=== PATIENT | female | born 1995 | race Caucasian/White ===

== ENCOUNTER 2021-03-07 03:46 | Inpatient (IN) | payer OTHER ==
[~2021-03-07] VITALS: Ht 172.7 cm; Wt 112.4 kg
[2021-03-07] VITALS (9 sets, daily range): BP systolic 114–133; BP diastolic 57–72
[2021-03-07] MEDS ORDERED: OXYTOCIN DRIP 30 UNITS in IV 1 EA IV PRN (05:05)
[2021-03-07] MEDS ORDERED: AZITHROMYCIN IV ONE (06:00)
[2021-03-07] MEDS ORDERED: NS IV ONE (06:00)
[2021-03-07] MEDS ORDERED: MATE ADAPTER IV ONE (06:00)
[2021-03-07] MEDS: BETAMETHASONE SOLUSPAN 6MG/ML 5ML VIAL (J0702 PER 3MG) IM SCH (06:07)
[2021-03-07 06:09] LABS: HEMATOCRIT 34.6 % (36.0-47.0); HEMOGLOBIN 10.7 g/dl (12.0-15.5); MEAN CORPUSCULAR HGB CONC 30.9 g/dl (32.0-36.5); MEAN CORPUSCULAR VOLUME 80.8 fl (80.0-96.0); PLATELET COUNT, AUTOMATED 222 10^3/uL (150-450); RED BLOOD COUNT 4.28 10^6/uL (4.00-5.40); WHITE BLOOD COUNT 10.3 10^3/uL (4.0-10.0)
[2021-03-07] MEDS ORDERED: PEPC1TAB5 PO (06:47)
[2021-03-07] MEDS ORDERED: PRENTAB9 PO (06:47)
--- NOTE | 2021-03-07 07:04 | HPEPDOC ---
Obstetrical History & Physical General Date of Admission Mar 07, 2021 at 06:09 History of Present Illness Ms. Steven is a 25yo at 33+1 presenting for ROM that occurred yesterday around 1500 and has been leaking persistently since then clear fluid without odors. She denied VB, decreased FM, or regular painful contractions. She denied n/v/d, cp, sob, araujo, visual changes, f/c, urinary sx, vaginal discharge. 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 Past Medical History Medical History anxiety, depression, abnormal pap smear Surgical History: Denies/None Family History Significant Family History: No pertinent family hx Social History Marital Status: Family situation: Spouse/partner home Psychosocial History: Anxiety, Depression * Smoker: non-smoker Alcohol: Denies Drugs: denies Imunizations Tdap status: current Influenza Status: needs Allergies Coded Allergies: No Known Allergies (Unverified , 03/07/21) Medications Scheduled Famotidine (Pepcid) 20 Mg Tablet, 1 TAB PO BID No.137/Iron/Folic Acd ( Vitamin Tablet) 1 Each Tablet, 1 TAB PO DAILY Physical Examination Physical Examination GENERAL: Alert and oriented times three. BREAST: . ABDOMEN: Gravid and non-tender to touch. FETUS: Is vertex (VTX) by sterile vaginal examination (SVE) and US HEART RATE: Regular rate and rhythm. LUNGS: Clear to auscultation (CTA). EXTREMITIES: No edema. No clonus. Laboratory Data 24H LABS Laboratory Tests 2 03/07/21 05:09: Coronavirus (COVID-19)(PCR) NEGATIVE 03/07/21 05:34: Nucleated Red Blood Cells % (auto) 0.0 CBC/BMP Laboratory Tests 03/07/21 05:34 Microbiology Microbiology 03/07/21 Group B Streptococcus Screen (JABIER), Received Pending Urine Culture: No Growth Pertinent Laboratoy Data Blood Type: O+ RBC Antibody Screen: Negative HIV: Negative Hepatitis B: Negative Rapid Plasma Reagin: Nonreactive Rubella: Immune Varicella: Immune Chlamydia/Gonorrhea: Negative Group B Streptococcus: Unknown Quad Screen Test: Declined Glucose Tolerance Test: 142 Anatomy Ultrasound Placenta Location: Posterior Normal Anatomy: Yes (but incomplete imaging) Steroid Therapy Steroid Therapy: Yes Date #1: Mar 07, 2021 Vaginal Examination Dilation: 1cm Station: -3 Cervical Consistency: Firm Cervical Position: Posterior Presentation: Cephalic presentation (by US) Assessment Heart Rate (FHR): 145 Variability: Moderate Accelerations: Positive Decelerations: None Tocometer Contractions: No Multi-drug resistant Organism: No history of MDRO Assessment/Plan Assessment Ms. Steven is a 25yo at 33+1 presenting for ROM that occurred yesterday around 1500 and has been leaking persistently since then clear fluid without odors. She denied regular painful contractions or si/sx of infection. She had positive pooling and ferning. DELFINO was normal. CAT I tracing, reactive. Uterine irritability noted but no contractions. APC 1. A1GDM 2. anxiety/depression, no meds does not see BH 3. pap LSIL NOV 2018, needs pap PP 4. obesity and excessive weight gain 37#, pre- BMI 32 5. PPROM 6. incomplete anatomy scan and no repeat imaging Admit and orient. Latency antibiotics ordered plan for 48h IV and 5d of PO antibiotics BMTZ ordered Delivery between 34+0 and 36+6 - discussed with patient risks/benefits of earlier vs later delivery she is going to think about it more NICU notified finger stick glucose testing ordered for A1GDM Growth scan ordered Flower Arranger and consent. Diet: clears Group B Streptococcus (GBS) unknown, collected on admission Labs and intravenous (IV) per unit protocol. Counseled on Pitocin and induction of labor (IOL). Lactated Ringers (LR): PRN, saline lock C-S as appropriate. MARION ALVARADO DO Mar 07, 2021 07:04
--- NOTE | 2021-03-07 08:22 | REP ---
INDICATION: patient with premature rupture of membranes at 33+1 COMPARISON: None. TECHNIQUE: Transabdominal obstetrical ultrasound with color Doppler evaluation. FINDINGS: Examination demonstrates a single live intrauterine in cephalic presentation. motion is identified by technologist. Placenta is noted fundal and grade 2 without evidence for placenta previa or abruption. Amniotic fluid volume is normal. Cervix measures 4.5 cm in length and appears closed.. Gestational age by LMP 32 weeks 4 days with SANTIAGO 04/28/2021. Gestational age by current measurements 33 weeks 2 days with SANTIAGO 04/23/2021. FHR equals 146 beats per minute. Estimated weight 2135 grams (53rdpercentile). DELFINO: 11.3 cm (8.2-24.6) Umbilical artery 1 SD ratio: 2.00 (1.77-3.74) Limited anatomical assessment demonstrates normal cranium, cerebral ventricles, cisterna magna, lungs, four-chamber heart, diaphragm, stomach/abdominal wall, kidneys/bladder and spine. IMPRESSION: Single live advanced gestation in cephalic presentation demonstrating appropriate estimated weight. Limited anatomical assessment without obvious abnormality. <Electronically signed by Mo Costa > 03/07/21 0820
[2021-03-07] MEDS: PRENATAL VITAMINS CHEWABLE TABLET PO SCH (08:30)
[2021-03-07] MEDS: OMEPRAZOLE 20 MG CAP PO SCH (08:30)
[2021-03-07] MEDS: AMPICILLIN SOD 2 GM in D5W MINI-BAG PLUS 100 ML IV SCH ×3 (08:30→20:01)
[2021-03-07] MEDS ORDERED: GLUCAGON INJ 1MG VIAL SC PRN (21:25)
[2021-03-07] MEDS ORDERED: DEXTROSE 50% 50 ML SYRINGE IV PRN (21:25)
[2021-03-07] MEDS ORDERED: GLUCOSE 4GM CHEW TABLET PO PRN (21:25)
[2021-03-07] MEDS: HumaLOG INSULIN (NovoLOG) PER UNIT SC SCH (21:41)
[2021-03-08] MEDS: AMPICILLIN SOD 2 GM in D5W MINI-BAG PLUS 100 ML IV SCH ×4 (01:55→19:58)
[2021-03-08 03:53] VITALS: BP 112/66
[2021-03-08] MEDS: BETAMETHASONE SOLUSPAN 6MG/ML 5ML VIAL (J0702 PER 3MG) IM SCH (06:02)
[2021-03-08] MEDS: OMEPRAZOLE 20 MG CAP PO SCH (08:08)
[2021-03-08] MEDS: HumaLOG INSULIN (NovoLOG) PER UNIT SC SCH ×4 (08:08→20:48)
[2021-03-08] MEDS: PRENATAL VITAMINS CHEWABLE TABLET PO SCH (08:09)
[2021-03-08 08:14] VITALS: BP 114/61
--- NOTE | 2021-03-08 08:47 | IPNPDOC ---
Text Note Date of Service The patient was seen on 03/08/21. NOTE Ms. Steven is a 25yo at 33+2 presenting for PPROM that occurred [id number] around 1500 and has been leaking persistently since then clear fluid without odors. She denied regular painful contractions or si/sx of infection. She denied n/v/d, cp, sob, araujo, visual changes, abd pain, f/c, vaginal discharge, urinary sx, decreased FM, contractions. EXAM AAOx3, NAD non-tachy no increased WOB abd is gravid, non-tender extremities without edema normal affect and insight APC 1. A1GDM - requiring insulin but this is post BMTZ will continue to monitor 2. anxiety/depression, no meds does not see 3. pap LSIL NOV 2018, needs pap PP 4. obesity and excessive weight gain 37#, pre- BMI 32 5. PPROM 6. incomplete anatomy scan and no repeat imaging Assessment Ms. Steven is a 25yo at 33+2 presenting for PPROM that occurred [id number] around 1500 and has been leaking persistently since then clear fluid without odors. SVE on admission was 1/T/H. She is not wilver. She has no si/sx of infection and her uterus is non-tender. Her GBS is still pending. She had a GS with normal growth on admission. She has received latency IV antibiotics and will transition to PO tomorrow. She recieved 2 doses of BMTZ and will be BMTZ complete at 0600 tomorrow. She has A1GDM and her glucoses have been elevated, likely due to the BMTZ, she is on SS insulin and now has good control. Plan Latency antibiotics ordered plan for 48h IV and 5d of PO antibiotics BMTZ complete tomorrow morning Delivery between 34+0 and 36+6 - discussed with patient risks/benefits of earlier vs later delivery she is going to think about it more, she is thinking 34+0 at this point NICU notified finger stick glucose testing ordered for A1GDM, continue SS insulin GBS pending VS,Fishbone, I+O VS, Fishbone, I+O Vital Signs Date Time Temp Pulse Resp B/P (MAP) Pulse Ox O2 Delivery O2 Flow Rate FiO2 03/08/21 08:14 97.2 90 18 114/61 (78) 03/07/21 20:00 98 Room Air I&O- Last 24 Hours up to 6 AM 03/08/21 05:59 Intake Total 660 ml Balance 660 ml MARION ALVARADO DO Mar 08, 2021 08:47
[2021-03-08 12:44] VITALS: BP 120/77
[2021-03-08 18:07] VITALS: BP 116/56
[2021-03-08 20:10] VITALS: BP 119/56
[2021-03-08 23:24] VITALS: BP 105/50
[2021-03-09] VITALS (7 sets, daily range): BP systolic 109–135; BP diastolic 53–77
[2021-03-09] MEDS: AMPICILLIN SOD 2 GM in D5W MINI-BAG PLUS 100 ML IV SCH ×2 (01:51→08:02)
[2021-03-09] MEDS: HumaLOG INSULIN (NovoLOG) PER UNIT SC SCH ×4 (08:02→20:42)
[2021-03-09] MEDS: PRENATAL VITAMINS CHEWABLE TABLET PO SCH (08:08)
[2021-03-09] MEDS: OMEPRAZOLE 20 MG CAP PO SCH (08:08)
[2021-03-09] MEDS ORDERED: AMOXICILLIN 875 MG TAB PO SCH (09:00)
--- NOTE | 2021-03-09 09:15 | IPNPDOC ---
Text Note Date of Service The patient was seen on 03/09/21. NOTE Niyah is a 25 yo at 33+3 weeks gestation who was admitted two days ago for PPROM. She has been receiving latency abx and completed a course of BTMZ yesterday morning. She has Gestational diabetes and is receiving insulin sliding scale for coverage. She reports feeling well this morning and has no complaints. She is ambulating, voiding, tolerating a regular diet, and denies any bleeding or pain whatsoever. She continues to endorse clear leakage of fluid. She endorses regular movement. Chaperoned by RN Vitals - VSS, afebrile, normotensive, non tachycardic General - AAOX3, sitting up in bed, pleasant and conversant, NAD Abdomen - Gravid uterus at appropriate size for gestational age. No fundal tenderness Extremities - No edema Bedside TAUS ( anatomy not assessed): Viable SIUP in cephalic presentation. +FCA measured at 140 bpm. +gross movement. DELFINO 5.9cm. SDP of fluid >2.5cm. NST this AM - reactive GBS: returned negative Plan for transition to PO Amoxicillin (875mg) twice daily. She received a dose of 1000mg azithromycin on admission and completed 48 hours of IV ampicillin. She is BTMZ complete as of yesterday morning. Will continue ISS for glucose coverage. Suspect more elevated glucose readings at least partly explained by BTMZ dosing. Continue BID NSTs. We discussed timing of delivery. We discussed proceeding with delivery at 34 weeks vs waiting up until potentially 37 weeks. We discussed all risks and benefits of each. We did discuss trials do not demonstrate a difference in mortality, , or sepsis between earlier vs later delivery. She is leaning towards delivery at 34 weeks. All patient questions answered. Mahendra SMITH,Anita, I+O VS, Anita, I+O Vital Signs Date Time Temp Pulse Resp B/P (MAP) Pulse Ox O2 Delivery O2 Flow Rate FiO2 03/09/21 06:00 97.8 03/09/21 04:02 80 18 112/53 (72) 03/08/21 20:10 98 Room Air BECKY LACEY DO Mar 09, 2021 09:15
[2021-03-09] MEDS ORDERED: SLF 3 ML SYR IV PRN (14:45)
[2021-03-09] MEDS: AMOXICILLIN 875 MG TAB PO SCH (20:41)
[2021-03-09] MEDS: SLF 3 ML SYR IV SCH (20:44)
[2021-03-10 03:33] VITALS: BP 116/53
[2021-03-10] MEDS: SLF 3 ML SYR IV SCH ×3 (06:00→22:00)
--- NOTE | 2021-03-10 07:21 | IPNPDOC ---
Text Note Date of Service The patient was seen on 03/10/21. NOTE Niyah remains stable and has no complaints today. NST this morning was reactive. Glucose levels mostly 110s-120s. Vitals normal. Continue PO amoxicillin. Delivery indicated at 34-36+6 weeks. Likely will proceed with IOL closer to 34 weeks. Mahendra VS,Anita, I+O VS, Fishbone, I+O Vital Signs Date Time Temp Pulse Resp B/P (MAP) Pulse Ox O2 Delivery O2 Flow Rate FiO2 03/10/21 05:53 97.6 03/10/21 03:33 85 18 116/53 (74) 03/09/21 19:08 98 Room Air BECKY LACEY DO Mar 10, 2021 07:21
[2021-03-10] MEDS: HumaLOG INSULIN (NovoLOG) PER UNIT SC SCH ×4 (07:30→21:13)
[2021-03-10 07:57] VITALS: BP 124/70
[2021-03-10] MEDS: AMOXICILLIN 875 MG TAB PO SCH ×2 (08:52→20:53)
[2021-03-10] MEDS: OMEPRAZOLE 20 MG CAP PO SCH (08:52)
[2021-03-10] MEDS: PRENATAL VITAMINS CHEWABLE TABLET PO SCH (08:52)
[2021-03-10 11:48] VITALS: BP 116/68
[2021-03-10 14:41] VITALS: BP 130/60
[2021-03-10 17:59] VITALS: BP 116/66
[2021-03-10 22:03] VITALS: BP 122/67
[2021-03-11] VITALS (7 sets, daily range): BP systolic 111–133; BP diastolic 53–77
[2021-03-11] MEDS: SLF 3 ML SYR IV SCH ×3 (06:00→22:00)
--- NOTE | 2021-03-11 07:04 | IPNPDOC ---
Text Note Date of Service The patient was seen on 03/11/21. NOTE Ms. Steven is a 25yo at 33+5 presenting for PPROM that occurred [id number] around 1500 and has been leaking persistently since then clear fluid without odors. She denied regular painful contractions or si/sx of infection. She denied n/v/d, cp, sob, araujo, visual changes, abd pain, f/c, vaginal discharge, urinary sx, decreased FM, contractions. EXAM AAOx3, NAD non-tachy no increased WOB abd is gravid, non-tender extremities without edema normal affect and insight APC 1. A1GDM - requiring insulin but this is post BMTZ will continue to monitor 2. anxiety/depression, no meds does not see 3. pap LSIL NOV 2018, needs pap PP 4. obesity and excessive weight gain 37#, pre- BMI 32 5. PPROM 6. incomplete anatomy scan and no repeat imaging 7. GBS unknown - RESOLVED, GBS NEGATIVE Assessment Ms. Steven is a 25yo at 33+5 presenting for PPROM that occurred [id number] around 1500 and has been leaking persistently since then clear fluid without odors. SVE on admission was 1/T/H. She is not wilver. She has no si/sx of infection and her uterus is non-tender. She had a GS with normal growth on admission. She has received latency IV antibiotics and is now on 5d of PO. She is BMTZ complete. She has A1GDM and her glucoses have been elevated, likely due to the BMTZ, she is on SS insulin and now has good control. Plan Latency antibiotics ordered, continue 5d of PO antibiotics BMTZ complete Delivery between 34+0 and 36+6 - discussed with patient risks/benefits of earlier vs later delivery she is going to think about it more, she is thinking 34+0 at this point NICU notified finger stick glucose testing ordered for A1GDM s/p BMTZ, continue SS insulin PRN, has had good control VS,Fishbone, I+O VS, Fishbone, I+O Vital Signs Date Time Temp Pulse Resp B/P (MAP) Pulse Ox O2 Delivery O2 Flow Rate FiO2 03/11/21 06:08 96.9 71 16 114/64 (81) 03/09/21 19:08 98 Room MARION Burton DO Mar 11, 2021 07:04
[2021-03-11] MEDS: HumaLOG INSULIN (NovoLOG) PER UNIT SC SCH ×4 (07:30→21:34)
[2021-03-11] MEDS: PRENATAL VITAMINS CHEWABLE TABLET PO SCH (09:02)
[2021-03-11] MEDS: OMEPRAZOLE 20 MG CAP PO SCH (09:02)
[2021-03-11] MEDS: AMOXICILLIN 875 MG TAB PO SCH ×2 (09:51→21:34)
[2021-03-12 06:00] VITALS: BP 107/57
[2021-03-12] MEDS: SLF 3 ML SYR IV SCH ×3 (06:00→21:04)
--- NOTE | 2021-03-12 07:11 | IPNPDOC ---
Text Note Date of Service The patient was seen on 03/12/21. NOTE 25 yo at 33+6 weeks gestation admitted for PPROM at 33 weeks gestation. Niyah reports feeling well this AM. She is ambulating, voiding, tolerating a regular diet. She denies any fevers/chills, SOB, pelvic pain, or n/v. Vitals - VSS, afebrile, normotensive, non tachycardic General - AAOX3, sitting up in bed, NAD, pleasant and conversant Abdomen - Gravid uterus, no fundal tenderness Extremities - No edema NST reactive earlier this AM Continue PO amoxicillin. Recommend delivery between 34-37 weeks. Niyah is leaning towards closer to 34 weeks. Likely will proceed with IOL on or Wednesday. Continue BID NSTs. All questions answered. Mahendra VS,Anita, I+O VS, Anita, I+O Vital Signs Date Time Temp Pulse Resp B/P (MAP) Pulse Ox O2 Delivery O2 Flow Rate FiO2 03/12/21 06:00 98.0 81 17 107/57 (74) 98 Room Air BECKY LACEY DO Mar 12, 2021 07:11
[2021-03-12] MEDS: HumaLOG INSULIN (NovoLOG) PER UNIT SC SCH ×4 (07:30→21:04)
[2021-03-12] MEDS: OMEPRAZOLE 20 MG CAP PO SCH (09:46)
[2021-03-12] MEDS: AMOXICILLIN 875 MG TAB PO SCH ×2 (09:46→21:04)
[2021-03-12] MEDS: PRENATAL VITAMINS CHEWABLE TABLET PO SCH (09:46)
[2021-03-12 18:08] VITALS: BP 142/72
[2021-03-12 22:00] VITALS: BP 109/59
[2021-03-13] VITALS (10 sets, daily range): BP systolic 96–140; BP diastolic 54–71
[2021-03-13] MEDS: SLF 3 ML SYR IV SCH ×3 (06:34→21:03)
--- NOTE | 2021-03-13 06:42 | IPNPDOC ---
Text Note Date of Service The patient was seen on 03/13/21. NOTE Ms. Steven is a 25yo at 34+0 presenting for PPROM that occurred [id number] around 1500 and has been leaking persistently since then clear fluid without odors. She denied regular painful contractions or si/sx of infection. She denied n/v/d, cp, sob, araujo, visual changes, abd pain, f/c, vaginal discharge, urinary sx, decreased FM, contractions. EXAM AAOx3, NAD non-tachy no increased WOB abd is gravid, non-tender extremities without edema normal affect and insight APC 1. A1GDM - requiring insulin but this is post BMTZ will continue to monitor 2. anxiety/depression, no meds does not see 3. pap LSIL NOV 2018, needs pap PP 4. obesity and excessive weight gain 37#, pre- BMI 32 5. PPROM 6. incomplete anatomy scan and no repeat imaging 7. GBS unknown - RESOLVED, GBS NEGATIVE Assessment Ms. Steven is a 25yo at 34+0 presenting for PPROM that occurred [id number] around 1500 and has been leaking persistently since then clear fluid without odors. SVE on admission was 1/T/H. She is not wilver. She has no si/sx of infection and her uterus is non-tender. She had a GS with normal growth on admission. She has received latency IV antibiotics and is now on 5d of PO. She is BMTZ complete. She has A1GDM and her glucoses have been elevated, likely due to the BMTZ, she is on SS insulin and now has good control. Plan Latency antibiotics ordered, continue 5d of PO antibiotics BMTZ complete Delivery between 34+0 and 36+6 - discussed with patient risks/benefits of earlier vs later delivery she desires delivery at 34+0, plan for transfer to L+D and pitocin when space available NICU notified finger stick glucose testing ordered for A1GDM s/p BMTZ, continue SS insulin PRN, has had good control VS,Fishbone, I+O VS, Fishbone, I+O Vital Signs Date Time Temp Pulse Resp B/P (MAP) Pulse Ox O2 Delivery O2 Flow Rate FiO2 03/13/21 02:00 98.0 78 14 114/55 (74) 97 Room Air MARION ALVARADO DO Mar 13, 2021 06:42
[2021-03-13] MEDS: HumaLOG INSULIN (NovoLOG) PER UNIT SC SCH ×4 (07:57→21:04)
[2021-03-13] MEDS ORDERED: OXYTOCIN DRIP 30 UNITS in IV 1 EA IV SCH ×2 (09:30→22:00)
[2021-03-13] MEDS ORDERED: LACTATED RINGER'S 1000 ML IV STA (09:30)
[2021-03-13] MEDS ORDERED: OXYTOCIN DRIP 30 UNITS in IV 1 EA IV PRN (09:30)
[2021-03-13] MEDS ORDERED: diphenhydrAMINE 50MG/ML VIAL (J1200) IV PRN (09:50)
[2021-03-13] MEDS ORDERED: ONDANSETRON 4MG/2ML VIAL IV PRN (09:50)
[2021-03-13] MEDS ORDERED: FAMOTIDINE INJ 20MG/2ML VIAL (S0028 PER 1) IVP PRN (09:50)
[2021-03-13] MEDS ORDERED: ACETAMINOPHEN 500 MG TAB PO PRN (09:50)
--- NOTE | 2021-03-13 10:18 | IPNPDOC ---
Obstetrical Progress Note Date of Service Mar 13, 2021 Subjective 25 yo 34w0d with SANTIAGO of 24 APR 2021 admitted for PPROM at 33w0d. She is feeling well and has supportive family at the bedside. She denies contractions, vaginal bleeding, fever/chills, and reports positive movement. Objective Vital Signs Date Time Temp Pulse Resp B/P (MAP) Pulse Ox O2 Delivery O2 Flow Rate FiO2 03/13/21 06:00 98.6 85 16 111/60 (77) 98 Room Air Fetus is vertex by bedside US Assessment Heart Rate (FHR): 165 Variability: Moderate Accelerations: Positive Decelerations: None Tocometer Contractions: Yes Frequency: irregular (Occasional) Sterile Vaginal Examination Dilation: Fingertip Effacement (%): 30% Station: -3 Cervical Consistency: Firm Cervical Position: Posterior Postion/Presentation: Cephalic presentation Assessment and Plan Age: 25 : 2 Term: 1 Pre-term: 0 Abortions: 0 Livin EGA at Admission: 34 (+0) Weeks & Days 34w0d Status: Reassuring Group B Streptococcus: Negative Anticipate: Vaginal Delivery Additional Comments Will start IOL with PO cytotec Q4H up to 4 doses and then consider pitocin. Will minimize cervical exams to reduce risk of infection Discussed plan of care with patient and her spouse, all questions answered. ESTEBAN SINGLETON CNM Mar 13, 2021 09:57
[2021-03-13] MEDS: OMEPRAZOLE 20 MG CAP PO SCH (10:23)
[2021-03-13] MEDS: PRENATAL VITAMINS CHEWABLE TABLET PO SCH (10:23)
[2021-03-13] MEDS: LR 1,000 ML IV SCH (10:23)
[2021-03-13] MEDS: miSOPROStol 50MCG 1/2 TABLET PO SCH ×5 (10:25→22:00)
[2021-03-13 12:00] LABS: HEMATOCRIT 35.4 % (36.0-47.0); MEAN CORPUSCULAR HEMOGLOBIN 25.5 pg (27.0-33.0); MEAN CORPUSCULAR HGB CONC 31.1 g/dl (32.0-36.5); MEAN CORPUSCULAR VOLUME 81.9 fl (80.0-96.0); PLATELET COUNT, AUTOMATED 200 10^3/uL (150-450); RED BLOOD COUNT 4.32 10^6/uL (4.00-5.40); WHITE BLOOD COUNT 12.1 10^3/uL (4.0-10.0)
[2021-03-13] MEDS: AMOXICILLIN 875 MG TAB PO SCH ×2 (14:15→21:04)
[2021-03-13] MEDS ORDERED: PROMETHAZINE INJ 25 MG/ML VIAL (J2550) IV PRN (21:00)
[2021-03-13] MEDS ORDERED: BUTORPHANOL 2 MG/ML INJ (J0595) IV PRN (21:00)
--- NOTE | 2021-03-13 21:03 | IPNPDOC ---
Text Note Date of Service The patient was seen on 03/13/21. NOTE Niyah is a 25 yo at 34+0 weeks gestation who is undergoing IOL due to PPROM diagnosed at 33 weeks. She has completed a course of BTMZ and she has been on latency antibiotics. Her IOL was started with misoprostol. She has received two doses thus far. She reports feeling well, but is now having mild cramping. She denies any other concerns. VSS, afebrile, non tachycardic Cervical exam: deferred FHR tracing - Cat I, ctx have spaced on toco Plan for an additional dose of cytotec. Will then start pitocin later this evening. IV analgesia ordered if desired. Patient also candidate for epidural should she opt for it. All questions answered. Anita Villalba, I+O Anita SMITH, I+O Laboratory Tests 03/13/21 11:45 Vital Signs Date Time Temp Pulse Resp B/P (MAP) Pulse Ox O2 Delivery O2 Flow Rate FiO2 03/13/21 19:13 98.2 104 16 112/63 (79) 03/13/21 06:00 98 Room Air BECKY LACEY DO Mar 13, 2021 21:03
[2021-03-14] VITALS (12 sets, daily range): BP systolic 115–147; BP diastolic 62–86
[2021-03-14] MEDS: LR 1,000 ML IV SCH ×2 (01:00→01:30)
--- NOTE | 2021-03-14 02:26 | IPNPDOC ---
Text Note Date of Service The patient was seen on 03/14/21. NOTE Patient reporting increased pain. Chaperoned by RN Cervix: /-3 FHR tracing - Intermittent variable decels, +accels, moderate variability. Overall reassuring. Ctx becoming more regular. Patient desires IV pain medication, declines epidural. Continue pitocin. Mahendra VS,Anita, I+O VS, Jasonbone, I+O Laboratory Tests 03/13/21 11:45 Vital Signs Date Time Temp Pulse Resp B/P (MAP) Pulse Ox O2 Delivery O2 Flow Rate FiO2 03/14/21 01:31 80 115/67 (83) 03/14/21 01:00 98.1 16 03/13/21 06:00 98 Room Air I&O- Last 24 Hours up to 6 AM 03/14/21 06:00 Intake Total 240 ml Balance 240 ml BECKY LACEY DO Mar 14, 2021 02:26
[2021-03-14] MEDS ORDERED: PROMETHAZINE 25 MG TAB PO PRN (03:55)
[2021-03-14] MEDS ORDERED: DIBUCAINE 1% OINTMENT 30GM TOP PRN (03:55)
[2021-03-14] MEDS ORDERED: IBUPROFEN 800 MG TAB PO PRN (03:55)
[2021-03-14] MEDS ORDERED: MEASLES,MUMPS,RUBELLA VACCINE INJ (MMR-II) (90707) SC SCH (03:55)
[2021-03-14] MEDS ORDERED: RHOGAM 300 MCG (1500 IU) INJ (J2790) IM SCH (03:55)
[2021-03-14] MEDS ORDERED: DOCUSATE SODIUM 100MG CAPSULE PO PRN (03:55)
[2021-03-14] MEDS ORDERED: OXYTOCIN DRIP 30 UNITS in IV 1 EA IV SCH (03:55)
[2021-03-14] MEDS ORDERED: IBUPROFEN 600MG TAB PO PRN (03:55)
[2021-03-14] MEDS ORDERED: ACETAMINOPHEN TAB 650MG DOSE (2X325MG) PO PRN (03:55)
--- NOTE | 2021-03-14 04:02 | DNPDOC ---
[facility] Delivery Note Delivery Note DATE OF DELIVERY: 14Mar2021 at ~0340 PREDELIVERY DIAGNOSIS: 34+1 weeks gestation and IOL for PPROM POST DELIVERY DIAGNOSIS: Delivered. PROCEDURE: Spontaneous vaginal delivery CLERICAL AIDE TEACHER: Dr. Mccray ANESTHESIA: Received 2mg Stadol at ~0230 ESTIMATED BLOOD LOSS: 200 mL. FINDINGS: 4 pound 14oz female infant, Score 9/9, nuchal cord times 1. DELIVERY SUMMARY: I was called to the room with report that baby had delivered. I entered the labor room and the baby was crying vigorously on the warmer. Niyah was in bed with a clamp on her cut umbilical cord. She was prepped for delivery of her placenta. 3rd stage was completed with gentle traction on the 3 vessel cord and it was productive of an intact placenta. The uterine fundus was firm with massage and pitocin was administered via IV bolus. Inspection of the vagina, perineum, cervix, and labia revealed no lacerations. The fundus was palpated again and was firm. Sponge and instrument counts were correct X3. Mother and infant stable when I left the room. DO ABHIJIT Salgado CHRISTOPHER J. DO Mar 14, 2021 04:02
[2021-03-14] MEDS: SLF 3 ML SYR IV SCH ×2 (06:00→14:00)
[2021-03-14] MEDS: PRENATAL VITAMINS CHEWABLE TABLET PO SCH ×2 (09:00→09:28)
[2021-03-14] MEDS: ACETAMINOPHEN 500 MG TAB PO PRN ×2 (11:15→18:36)
[2021-03-15 06:26] VITALS: BP 108/58
[2021-03-15] MEDS: PRENATAL VITAMINS CHEWABLE TABLET PO SCH (09:38)
== END 2021-03-15 12:30 | disposition home or self-care (01) | DRG 807 ==
LOC: M LDO 03:46 → M LDI 06:09 → M OBS 03-11 18:18 → M LDI 03-13 10:18 → M OBS 03-14 06:43
PROVIDERS: ADMIT Obstetrics & Gynecology; ATTEND Obstetrics & Gynecology
PROC: 10E0XZZ Delivery of Products of Conception, External Approach (ICD-10-PCS; principal; 2021-03-14)
DX: O60.14X0 Preterm labor third trimester with preterm delivery third trimester, not applicable or unspecified (principal); Z37.0 Single live birth; Z3A.33 33 weeks gestation of pregnancy; O24.424 Gestational diabetes mellitus in childbirth, insulin controlled; E66.9 Obesity, unspecified; O99.214 Obesity complicating childbirth; O42.013 Preterm premature rupture of membranes, onset of labor within 24 hours of rupture, third trimester